=== PATIENT | female | born 1990 | race African-American/Black ===

== ENCOUNTER 2016-06-28 19:07 | Emergency (ER) | payer OTHER ==
[~2016-06-28] VITALS: Ht 154.9 cm; Wt 86.2 kg
[~2016-06-28 19:07] MED LIST: BIRTH CONTROL; DOXYCYCLINE 10100 MG PO
[2016-06-28 19:12] VITALS: BP 120/55
[2016-06-28] MEDS ORDERED: NYAMYC15 GM TOP (19:27)
== END 2016-06-28 19:41 ==
LOC: ER 19:07
DX: R21 Rash and other nonspecific skin eruption (principal); Z88.2 Allergy status to sulfonamides